=== PATIENT | male | born 1975 | race Caucasian/White ===

== ENCOUNTER 2023-05-15 13:06 | Emergency (ER) | payer MEDICAID ==
[2023-05-15 13:56] LABS: STREP A BY PCR NOT DETECTED (NOT DETECT)
[2023-05-15 14:05] LABS: CORONAVIRUS COVID-19 NAA NEGATIVE (NEGATIVE); INFLUENZA A NAA NEGATIVE (NEGATIVE); INFLUENZA B NAA NEGATIVE (NEGATIVE)
[2023-05-15 14:06] LABS: RESPIRATORY SYNCYTIAL VIR NAA NEGATIVE (NEGATIVE)
== END 2023-05-15 14:16 | disposition home or self-care (01) ==
LOC: VM.ED 13:06
DX: J02.9 Acute pharyngitis, unspecified (principal); Z20.822 Contact with and (suspected) exposure to COVID-19
CPT/HCPCS: 0241U; 87651-QW; 99284

== ENCOUNTER 2023-05-19 08:34 | Emergency (ER) | payer MEDICAID ==
[2023-05-19] MEDS: Take Home: predniSONE 20 MG, 2 Tab Pack PO ONE (09:03)
== END 2023-05-19 10:03 | disposition home or self-care (01) ==
LOC: VM.ED 08:34
DX: J40 Bronchitis, not specified as acute or chronic (principal); Z88.0 Allergy status to penicillin
CPT/HCPCS: 99284; J7512

== ENCOUNTER 2023-10-18 22:12 | Emergency (ER) | payer OTHER, MEDICAID ==
[2023-10-18] MEDS: Acetaminophen 500 MG Tab PO ONE (22:38)
[2023-10-18] MEDS: Ketorolac 30 MG/ML SDV IM ONE (22:39)
[2023-10-18] MEDS: Take Home: Cyclobenzaprine 10 MG Tab, 4 Tab Pack PO ONE (22:41)
== END 2023-10-18 23:00 | disposition home or self-care (01) ==
LOC: VM.ED 22:12
DX: M62.830 Muscle spasm of back (principal); Z88.0 Allergy status to penicillin; X50.0XXA Overexertion from strenuous movement or load, initial encounter; Y93.89 Activity, other specified; Y99.0 Civilian activity done for income or pay
CPT/HCPCS: 96372; 99283; A9270; J1885

== ENCOUNTER 2024-09-19 13:09 | Emergency (ER) | payer MEDICAID | END 2024-09-19 14:25 | disposition home or self-care (01) | LOC: VM.ED 13:09 | DX: J06.9 Acute upper respiratory infection, unspecified (principal); Z88.0 Allergy status to penicillin | CPT/HCPCS: 87428-QW; 99282; 99283 ==

== ENCOUNTER 2024-12-10 16:38 | Emergency (ER) | payer MEDICAID ==
[2024-12-10] MEDS: Sulfamethoxazole/Trimethoprim 800-160 MG Tab PO ONE (17:14)
== END 2024-12-10 17:15 | disposition home or self-care (01) ==
LOC: VM.ED 16:38
DX: L03.211 Cellulitis of face (principal); L02.01 Cutaneous abscess of face; Z88.0 Allergy status to penicillin
CPT/HCPCS: 99283; A9270